=== PATIENT | female | born 1955 | race Caucasian/White ===

== ENCOUNTER 2021-11-18 12:42 | Outpatient (CLI) | payer OTHER | END 2021-11-18 12:43 | disposition home or self-care (01) | LOC: MRI 12:42 | PROVIDERS: ATTEND Neurological Surgery | DX: M50.30 Other cervical disc degeneration, unspecified cervical region (principal); M51.36 Other intervertebral disc degeneration, lumbar region; Z53.9 Procedure and treatment not carried out, unspecified reason | CPT/HCPCS: 72141; 72148 ==

== ENCOUNTER 2021-12-08 10:37 | Outpatient (CLI) | payer OTHER | END 2021-12-08 10:38 | disposition home or self-care (01) | LOC: LABBT 10:37 | PROVIDERS: ATTEND Neurological Surgery | DX: Z20.822 Contact with and (suspected) exposure to COVID-19 (principal) | CPT/HCPCS: 87811 ==

== ENCOUNTER 2021-12-31 11:13 | Outpatient (CLI) | payer OTHER | END 2021-12-31 11:14 | disposition home or self-care (01) | LOC: LABBT 11:13 | PROVIDERS: ATTEND Neurological Surgery | DX: Z20.822 Contact with and (suspected) exposure to COVID-19 (principal) | CPT/HCPCS: 87811 ==

== ENCOUNTER 2022-01-05 10:35 | Day surgery (SDC) | payer OTHER ==
[2022-01-01 10:28] VITALS: BMI 28.8
[2022-01-05] MEDS ORDERED: Midazolam HCl 2 mg/2 ml Vial ONE (11:29)
[2022-01-05] MEDS ORDERED: Dexamethasone 20 MG/5 ML VIAL ONE (14:00)
[2022-01-05] MEDS ORDERED: Ondansetron PF 4 MG/2 ML Vial ONE (14:00)
[2022-01-05] MEDS ORDERED: Lidocaine 1% PF 5 ML VIAL ONE (14:00)
[2022-01-05] MEDS ORDERED: PROPOFOL 200 MG/20 ML VIAL ONE (14:00)
[2022-01-05] MEDS ORDERED: Phenylephrine 10 MG/ML VIAL ONE (14:00)
[2022-01-05] MEDS ORDERED: Fentanyl 100 MCG/2 ML VIAL ONE (14:55)
[2022-01-05] MEDS ORDERED: Morphine 2 MG/ML VIAL ONE (15:23)
== END 2022-01-05 16:10 | disposition home or self-care (01) ==
LOC: MRI 10:35 → EDSTATUS 12:00 → MRI 16:10
PROVIDERS: ATTEND Neurological Surgery
DX: M47.22 Other spondylosis with radiculopathy, cervical region (principal); M50.123 Cervical disc disorder at C6-C7 level with radiculopathy; M48.02 Spinal stenosis, cervical region; M51.16 Intervertebral disc disorders with radiculopathy, lumbar region; M48.061 Spinal stenosis, lumbar region without neurogenic claudication; M48.07 Spinal stenosis, lumbosacral region; I25.10 Atherosclerotic heart disease of native coronary artery without angina pectoris; I10 Essential (primary) hypertension; E78.5 Hyperlipidemia, unspecified; Z79.82 Long term (current) use of aspirin; Z79.899 Other long term (current) drug therapy; Z95.1 Presence of aortocoronary bypass graft; Z95.810 Presence of automatic (implantable) cardiac defibrillator
CPT/HCPCS: 72141; 72148; J1100; J2250; J2270; J2370; J2405; J2704; J3010

== ENCOUNTER 2022-03-11 13:32 | Outpatient (CLI) | payer OTHER ==
[2022-03-11 15:55] LABS: Hemoglobin 13.4 g/dL (12.0-15.5); Mean Corpuscular HGB CONC 31.8 g/dL (32.0-36.0); Mean Corpuscular Hemoglobin 28.6 pg (27.0-33.0); Mean Platelet Volume 8.9 fl (7.4-10.4); Platelet Count 345 10x3/uL (150-450); RBC Distribution Width 13.2 % (11.5-14.5); Red Blood Cell (RBC) Count 4.69 10x6/uL (3.90-5.03); White Blood Cell (WBC) Count 8.1 10x3/uL (3.5-10.5)
[2022-03-11 16:18] LABS: Anion Gap 17 mmol/L (10-20); BUN (Urea Nitrogen) 16 mg/dL (9.8-20.1); Calc. Creatinine Clearance 0 mL/min (70-130); Calcium 9.5 mg/dL (7.8-10.44); Carbon Dioxide 26 mmol/L (23-31); Chloride 106 mmol/L (98-107); Estimated GFR 89; Glucose 98 mg/dL (80-115); Potassium 4.7 mmol/L (3.5-5.1); Sodium 144 mmol/L (136-145)
== END 2022-03-11 13:33 | disposition home or self-care (01) ==
LOC: LABBT 13:32
PROVIDERS: ATTEND Neurological Surgery
DX: Z01.818 Encounter for other preprocedural examination (principal); M54.12 Radiculopathy, cervical region; Z20.822 Contact with and (suspected) exposure to COVID-19
CPT/HCPCS: 80048; 85027; 87811; 93005; 93010

== ENCOUNTER 2022-03-16 06:35 | Day surgery (SDC) | payer OTHER ==
[2022-03-13 11:25] VITALS: BMI 28.8
[2022-03-16] MEDS ORDERED: Midazolam HCl 2 mg/2 ml Vial ONE (07:26)
[2022-03-16] MEDS ORDERED: CEFAZOLIN 2 GM VIAL ONE (07:32)
[2022-03-16] MEDS ORDERED: Sodium Chloride 0.9% 100 ML ONE (07:32)
[2022-03-16] MEDS ORDERED: Fentanyl 100 MCG/2 ML VIAL ONE ×3 (07:50→09:47)
[2022-03-16] MEDS ORDERED: fentaNYL Citrate/PF 100 MCG/2 ML SYRINGE ONE (08:07)
[2022-03-16] MEDS ORDERED: Rocuronium Bromide 10 MG/ML (10ML VIAL) ONE (08:13)
[2022-03-16] MEDS ORDERED: Dexamethasone 20 MG/5 ML VIAL ONE (08:13)
[2022-03-16] MEDS ORDERED: NEOSTIGMINE 3 MG/3 ML SYR 3 MG/3 ML SYRINGE ONE (08:13)
[2022-03-16] MEDS ORDERED: ePHEDrine 50 MG/ML VIAL ONE (08:13)
[2022-03-16] MEDS ORDERED: Ondansetron PF 4 MG/2 ML Vial ONE (08:13)
[2022-03-16] MEDS ORDERED: PROPOFOL 200 MG/20 ML VIAL ONE (08:13)
[2022-03-16] MEDS ORDERED: Glycopyrrolate 0.2 MG/ML 5 ML SYRINGE ONE (08:13)
[2022-03-16] MEDS ORDERED: SUGAMMADEX SODIUM 200 MG/2 ML VIAL ONE (09:19)
[2022-03-16] MEDS ORDERED: Cyclobenzaprine 10 MG TAB ONE (10:26)
[2022-03-16] MEDS ORDERED: Morphine 2 MG/ML VIAL ONE (10:26)
[2022-03-16] MEDS ORDERED: Morphine 4 MG/ML VIAL ONE (10:53)
[2022-03-16] MEDS ORDERED: HYDROcodone/Acetaminophen 5/325 mg Tablet ONE (11:17)
== END 2022-03-16 11:44 | disposition home or self-care (01) ==
LOC: SDC 06:35
PROVIDERS: ATTEND Neurological Surgery
PROC: 0RG20A0 Fusion of 2 or more Cervical Vertebral Joints with Interbody Fusion Device, Anterior Approach, Anterior Column, Open Approach (ICD-10-PCS; principal; 2022-03-16)
DX: M47.22 Other spondylosis with radiculopathy, cervical region (principal); I25.10 Atherosclerotic heart disease of native coronary artery without angina pectoris; I10 Essential (primary) hypertension; Z79.899 Other long term (current) drug therapy; Z95.810 Presence of automatic (implantable) cardiac defibrillator; Z95.1 Presence of aortocoronary bypass graft
CPT/HCPCS: 76000; C1713; J0690; J2250; J2270; J3010; J3490

== ENCOUNTER 2022-04-08 09:07 | Outpatient (CLI) | payer OTHER | END 2022-04-08 09:08 | disposition home or self-care (01) | LOC: TBSIIMAG 09:07 | PROVIDERS: ATTEND Neurological Surgery | DX: M54.12 Radiculopathy, cervical region (principal); Z98.1 Arthrodesis status | CPT/HCPCS: 72040 ==

== ENCOUNTER 2022-04-27 18:34 | Inpatient (IN) | payer OTHER ==
[2022-04-27 20:24] LABS: #Lymphocytes 1.9 thou/uL (1.20-3.40); #Monocytes 1.2 thou/uL (0.11-0.59); #Neutrophils 7.9 thou/uL (1.40-6.50); %Basophils 0.1 % (0.0-1.0); %Eosinophils 0.2 % (0.0-10.0); %Lymphocytes 17.2 % (21.0-51.0); %Monocytes 10.9 % (0.0-10.0); %Neutrophils 71.6 % (42.0-75.0); Mean Corpuscular HGB CONC 33.3 g/dL (32.0-36.0); Mean Corpuscular Hemoglobin 30.3 pg (27.0-31.0); Mean Corpuscular Volume 91.1 fl (78.0-98.0); Mean Platelet Volume 6.6 fL (7.4-10.4); Platelet Count 341 10x3/uL (130-400); RBC Distribution Width 13.6 % (11.5-14.5); Red Blood Cell (RBC) Count 4.62 mill/uL (4.20-5.40); White Blood Cell (WBC) Count 11.1 10x3/uL (4.8-10.8)
[2022-04-27 20:39] LABS: INR-International Normal Ratio 1.1; PTT 32.1 sec (22.9-36.1); Prothrombin Time 14.2 sec (12.0-14.7)
[2022-04-27 20:53] LABS: ALT (SGPT) 17 U/L (8-55); AST (SGOT) 16 U/L (5-34); Albumin 4.2 g/dL (3.4-4.8); Alkaline Phosphatase 89 U/L (40-110); Anion Gap 14 mmol/L (10-20); BUN (Urea Nitrogen) 7 mg/dL (9.8-20.1); Bilirubin, Total 0.5 mg/dL (0.2-1.2); Calc. Creatinine Clearance 0 mL/min (70-130); Calcium 9.4 mg/dL (7.8-10.44); Carbon Dioxide 26 mmol/L (23-31); Chloride 102 mmol/L (98-107); Estimated GFR 98; Glucose 107 mg/dL (80-115); Potassium 3.7 mmol/L (3.5-5.1); Sodium 138 mmol/L (136-145)
[2022-04-27] MEDS ORDERED: Ondansetron PF 4 MG/2 ML Vial IVP PRN (21:20)
[2022-04-27] MEDS ORDERED: hydrALAZINE 20 MG/ML VIAL SLOW IVP PRN (21:20)
[2022-04-27] MEDS ORDERED: TETANUS, DIPHTHERIA TOX,ADULT (TDVAX) 0.5 ML VIAL IM ONE (21:20)
[2022-04-27 21:22] LABS: Globulin 3.5 g/dL (2.4-3.5); Protein, Total 7.7 g/dL (5.8-8.1)
[2022-04-27 21:27] LABS: Acetaminophen Less than 10.0 mcg/mL (10.0-30.0); Alcohol Less than 10 mg/dL (Less than 10); Salicylate Less than 8.0 mg/dL (15.0-30.0)
[2022-04-27] MEDS ORDERED: Sodium Chloride 0.9% 1,000 ML IV SCH (21:30)
[2022-04-27] MEDS ORDERED: Morphine 4 MG/ML VIAL SLOW IVP PRN (21:30)
[2022-04-27] MEDS ORDERED: Ondansetron PF 4 MG/2 ML Vial ONE (21:32)
[2022-04-27] MEDS ORDERED: Boostrix 0.5 ML (Tdap) VIAL (>/=7 yrs of age) ONE (21:32)
[2022-04-27] MEDS ORDERED: Morphine 4 MG/ML VIAL ONE (21:32)
[2022-04-27] MEDS ORDERED: tiZANidine HCl 4 MG TAB PO PRN (22:11)
[2022-04-27] MEDS ORDERED: Lidocaine 1% PF 5 ML VIAL ONE (22:51)
[2022-04-27 22:58] LABS: Acetaminophen Less than 10.0 mcg/mL (10.0-30.0); Alcohol Less than 10 mg/dL (Less than 10); Salicylate Less than 8.0 mg/dL (15.0-30.0)
[2022-04-27 23:05] LABS: Troponin I Less than 0.010 ng/mL (< 0.028)
[2022-04-27] MEDS ORDERED: Metoclopramide HCl 10 MG/2 ML VIAL ONE (23:17)
[2022-04-27] MEDS ORDERED: Acetaminophen 500 MG TAB ONE (23:17)
[2022-04-27] MEDS ORDERED: Acetaminophen 500 MG TAB PO SCH (23:59)
[2022-04-28] MEDS ORDERED: Morphine 4 MG/ML VIAL ONE ×2 (01:05→10:10)
[2022-04-28] MEDS ORDERED: Prochlorperazine 10 MG/2 ML VIAL IVP SCH (01:45)
[2022-04-28] MEDS ORDERED: diphenhydrAMINE 50 MG/ML VIAL ONE (02:43)
[2022-04-28] MEDS: Acetaminophen 325 MG TAB PO SCH ×3 (04:11→17:32)
[2022-04-28] MEDS: Acetaminophen/Codeine 30-300mg Tablet PO SCH ×4 (04:12→17:31)
[2022-04-28] MEDS ORDERED: Acetaminophen/Codeine 30-300mg Tablet ONE (05:27)
[2022-04-28 06:04] LABS: #Lymphocytes 2.5 thou/uL (1.20-3.40); #Neutrophils 5.2 thou/uL (1.40-6.50); %Basophils 0.3 % (0.0-1.0); %Eosinophils 0.4 % (0.0-10.0); %Lymphocytes 28.4 % (21.0-51.0); %Monocytes 11.3 % (0.0-10.0); %Neutrophils 59.7 % (42.0-75.0); Hemoglobin 13.4 g/dL (12.0-16.0); Mean Corpuscular HGB CONC 32.4 g/dL (32.0-36.0); Mean Corpuscular Hemoglobin 29.9 pg (27.0-31.0); Mean Corpuscular Volume 92.4 fl (78.0-98.0); Mean Platelet Volume 6.8 fL (7.4-10.4); Platelet Count 293 10x3/uL (130-400); RBC Distribution Width 13.7 % (11.5-14.5); Red Blood Cell (RBC) Count 4.49 mill/uL (4.20-5.40); White Blood Cell (WBC) Count 8.7 10x3/uL (4.8-10.8)
[2022-04-28 06:12] LABS: SARS-CoV-2 NAA Rapid Test Not Detected (NotDetected)
[2022-04-28 06:21] LABS: Phosphorus 3.4 mg/dL (2.3-4.7)
[2022-04-28 06:23] LABS: Anion Gap 12 mmol/L (10-20); BUN (Urea Nitrogen) 6 mg/dL (9.8-20.1); Calc. Creatinine Clearance 0 mL/min (70-130); Calcium 8.8 mg/dL (7.8-10.44); Carbon Dioxide 24 mmol/L (23-31); Chloride 104 mmol/L (98-107); Estimated GFR 103; Glucose 91 mg/dL (80-115); Magnesium 2.1 mg/dL (1.6-2.6); Potassium 3.4 mmol/L (3.5-5.1); Sodium 137 mmol/L (136-145)
[2022-04-28] MEDS ORDERED: PHOS-NAK 1 PKT PACK PO SCH (07:45)
[2022-04-28] MEDS ORDERED: Potassium Chloride 20 MEQ TAB PO SCH (07:45)
[2022-04-28] MEDS ORDERED: Famotidine/PF 20 mg/2ml Vial SLOW IVP SCH (09:00)
[2022-04-28] MEDS ORDERED: Bupropion 150 MG SR TAB PO SCH (09:00)
[2022-04-28] MEDS ORDERED: Morphine 4 MG/ML VIAL SLOW IVP SCH (10:15)
[2022-04-28 13:45] VITALS: BMI 27.2
[2022-04-28] MEDS: Ezetimibe 10 MG TAB PO SCH (14:17)
[2022-04-28] MEDS: Famotidine 20 MG TAB PO SCH ×2 (14:19→20:56)
[2022-04-28] MEDS: Polyethylene Glycol 3350 17 GM Packet PO SCH (14:20)
[2022-04-28] MEDS: Senokot S 8.6-50 MG TAB PO SCH ×2 (14:20→20:56)
[2022-04-28] MEDS: hydrALAZINE 20 MG/ML VIAL SLOW IVP PRN (14:38)
[2022-04-28] MEDS: Amlodipine 5 MG TAB PO SCH ×2 (15:18→20:56)
[2022-04-28] MEDS: FLUoxetine HCl 20 MG CAP PO SCH (16:41)
[2022-04-28] MEDS ORDERED: Atorvastatin Calcium 10 MG TAB PO SCH (17:00)
[2022-04-28] MEDS ORDERED: Melatonin 3 MG TAB PO PRN (20:44)
[2022-04-28] MEDS ORDERED: Acetaminophen/Codeine 30-300mg Tablet PO SCH (20:45)
[2022-04-29] MEDS: Acetaminophen/Codeine 30-300mg Tablet PO SCH ×5 (00:18→23:41)
[2022-04-29] MEDS: Acetaminophen 500 MG TAB PO SCH ×2 (00:18→05:23)
[2022-04-29 00:53] LABS: Bacteria/HPF None Seen HPF (None Seen); Bilirubin Negative (Negative); Blood, Urine Negative (Negative); CAUTI Indications for Culture Pelvic or flank pain; Clarity Clear (Clear); Glucose, Urine (Dipstick) Normal (Negative); Ketone, Urine 20 mg/dL (Negative); Leukocyte 25 Leu/uL (Negative); Nitrite Negative (Negative); Protein, Urine (Dipstick) Negative (Neg-Trace); RBC/HPF 0-3 HPF (0-3); Specific Gravity, Urine 1.015 (1.002-1.036); Squamous Epithelial 0-3 HPF (0-3); Urobilinogen Normal mg/dL (Less than 2); pH, Urine 5.5 (5.0-9.0)
[2022-04-29 00:56] LABS: Urine Culture Reflex No No
[2022-04-29 05:04] LABS: #Lymphocytes 2.4 thou/uL (1.20-3.40); #Neutrophils 4.6 thou/uL (1.40-6.50); %Basophils 0.4 % (0.0-1.0); %Eosinophils 0.5 % (0.0-10.0); %Lymphocytes 29.9 % (21.0-51.0); %Monocytes 12.6 % (0.0-10.0); %Neutrophils 56.6 % (42.0-75.0); Hemoglobin 12.9 g/dL (12.0-16.0); Mean Corpuscular HGB CONC 31.6 g/dL (32.0-36.0); Mean Corpuscular Hemoglobin 29.1 pg (27.0-31.0); Mean Platelet Volume 6.8 fL (7.4-10.4); Platelet Count 298 10x3/uL (130-400); RBC Distribution Width 13.6 % (11.5-14.5); Red Blood Cell (RBC) Count 4.43 mill/uL (4.20-5.40); White Blood Cell (WBC) Count 8.1 10x3/uL (4.8-10.8)
[2022-04-29 05:27] LABS: Anion Gap 13 mmol/L (10-20); BUN (Urea Nitrogen) 7 mg/dL (9.8-20.1); Calc. Creatinine Clearance 122 mL/min (70-130); Calcium 8.9 mg/dL (7.8-10.44); Carbon Dioxide 27 mmol/L (23-31); Chloride 103 mmol/L (98-107); Estimated GFR 103; Glucose 104 mg/dL (80-115); Magnesium 2.2 mg/dL (1.6-2.6); Phosphorus 3.2 mg/dL (2.3-4.7); Potassium 3.7 mmol/L (3.5-5.1); Sodium 139 mmol/L (136-145)
[2022-04-29] MEDS ORDERED: PHOS-NAK 1 PKT PACK PO SCH (08:00)
[2022-04-29] MEDS ORDERED: Dexamethasone 4 MG in Sodium Chloride 0.9% 50 ML IVPB SCH (10:00)
[2022-04-29] MEDS: Amlodipine 5 MG TAB PO SCH (10:40)
[2022-04-29] MEDS: Famotidine 20 MG TAB PO SCH ×2 (10:41→20:40)
[2022-04-29] MEDS: Senokot S 8.6-50 MG TAB PO SCH ×2 (10:41→20:40)
[2022-04-29] MEDS: FLUoxetine HCl 20 MG CAP PO SCH (10:41)
[2022-04-29] MEDS: Ezetimibe 10 MG TAB PO SCH (10:41)
[2022-04-29] MEDS: Polyethylene Glycol 3350 17 GM Packet PO SCH (10:42)
[2022-04-29] MEDS: Dexamethasone 4 mg/ml Vial SLOW IVP SCH ×3 (11:54→23:41)
[2022-04-29] MEDS ORDERED: Ramipril 5 MG CAP PO SCH (13:30)
[2022-04-29] MEDS: hydrALAZINE 20 MG/ML VIAL SLOW IVP PRN (15:23)
[2022-04-29] MEDS: Mexiletine HCl 150 MG CAP PO SCH (20:40)
[2022-04-30] MEDS: Dexamethasone 4 mg/ml Vial SLOW IVP SCH ×2 (05:14→12:05)
[2022-04-30] MEDS: Acetaminophen/Codeine 30-300mg Tablet PO SCH ×2 (05:14→12:05)
[2022-04-30] MEDS ORDERED: Ramipril 5 MG CAP PO SCH (09:00)
[2022-04-30] MEDS: hydrALAZINE 20 MG/ML VIAL SLOW IVP PRN (10:15)
[2022-04-30] MEDS: FLUoxetine HCl 20 MG CAP PO SCH (10:16)
[2022-04-30] MEDS: Famotidine 20 MG TAB PO SCH ×2 (10:17→10:20)
[2022-04-30] MEDS: Mexiletine HCl 150 MG CAP PO SCH (10:17)
[2022-04-30] MEDS: Senokot S 8.6-50 MG TAB PO SCH (10:18)
[2022-04-30] MEDS: Polyethylene Glycol 3350 17 GM Packet PO SCH (10:18)
[2022-04-30 12:11] VITALS: BP 166/78; TEMP 97.6
== END 2022-04-30 14:25 | disposition home or self-care (01) | DRG 84 ==
LOC: ERS 18:34 → ERHOLD 21:24 → 2NO 04-28 13:30
PROVIDERS: ADMIT Surgery; ATTEND Surgery
PROC: 0HQ0XZZ Repair Scalp Skin, External Approach (ICD-10-PCS; principal; 2022-04-27)
DX: S06.5XAA Traumatic subdural hemorrhage with loss of consciousness status unknown, initial encounter (principal); I25.10 Atherosclerotic heart disease of native coronary artery without angina pectoris; I10 Essential (primary) hypertension; F41.9 Anxiety disorder, unspecified; G89.29 Other chronic pain; Z20.822 Contact with and (suspected) exposure to COVID-19; W19.XXXA Unspecified fall, initial encounter; S01.01XA Laceration without foreign body of scalp, initial encounter; Z95.0 Presence of cardiac pacemaker; Z95.1 Presence of aortocoronary bypass graft; Z98.890 Other specified postprocedural states; Y92.89 Other specified places as the place of occurrence of the external cause
CPT/HCPCS: 36415; 70450; 71045; 72125; 80048; 80053; 80307; 81001; 82550; 83735; 84100; 84484; 85025; 85610; 85730; 90471; 90715; 93005; 93306; 93880; 96374; 96375; 96376; J0360; J0780; J1100; J1200; J2270; J2405; J2765; J7050; U0002

== ENCOUNTER 2022-06-02 11:10 | Outpatient (CLI) | payer OTHER | END 2022-06-02 11:11 | disposition home or self-care (01) | LOC: CT 11:10 | PROVIDERS: ATTEND Physician Assistant | DX: S06.5XAA Traumatic subdural hemorrhage with loss of consciousness status unknown, initial encounter (principal) | CPT/HCPCS: 70450 ==

== ENCOUNTER 2022-06-04 11:07 | Outpatient (CLI) | payer OTHER | END 2022-06-04 11:08 | disposition home or self-care (01) | LOC: TBSIIMAG 11:07 | PROVIDERS: ATTEND Neurological Surgery | DX: M50.30 Other cervical disc degeneration, unspecified cervical region (principal); M47.812 Spondylosis without myelopathy or radiculopathy, cervical region; M43.12 Spondylolisthesis, cervical region; Z98.890 Other specified postprocedural states | CPT/HCPCS: 72040 ==

== ENCOUNTER 2023-08-06 02:30 | Emergency (ER) | payer MEDICARE ==
[2023-08-06] MEDS ORDERED: LORazepam 2 MG/ML SYR.(CARPUJECT) ONE (02:57)
[2023-08-06] MEDS ORDERED: Lidocaine 1% w/Epinephrine 1:100K 20 ML VIAL ONE (02:58)
[2023-08-06 03:51] LABS: #Eosinphils 0.1 thou/uL (0.0-0.7); #Monocytes 0.6 thou/uL (0.11-0.59); %Basophils 0.5 % (0.0-1.0); %Eosinophils 1.6 % (0.0-10.0); %Lymphocytes 24.2 % (21.0-51.0); %Monocytes 8.3 % (0.0-10.0); %Neutrophils 64.9 % (42.0-75.0); Hematocrit 41.2 % (36.0-47.0); Hemoglobin 13.6 g/dL (12.0-16.0); Mean Corpuscular Hemoglobin 30.2 pg (27.0-31.0); Mean Corpuscular Volume 91.4 fl (78.0-98.0); Platelet Count 241 10x3/uL (130-400); RBC Distribution Width 12.6 % (11.5-14.5); Red Blood Cell (RBC) Count 4.51 mill/uL (4.20-5.40); White Blood Cell (WBC) Count 7.7 10x3/uL (4.8-10.8)
[2023-08-06 04:27] LABS: Chloride 98 mmol/L (98-107); Potassium 4.4 mmol/L (3.5-5.1); Sodium 133 mmol/L (136-145)
[2023-08-06 04:28] LABS: ALT (SGPT) 22 U/L (8-55); AST (SGOT) 23 U/L (5-34); Alkaline Phosphatase 85 U/L (40-110); Anion Gap 17 mmol/L (10-20); BUN (Urea Nitrogen) 15 mg/dL (9.8-20.1); Bilirubin, Total 0.2 mg/dL (0.2-1.2); Calc. Creatinine Clearance 0 mL/min (70-130); Calcium 9.6 mg/dL (7.8-10.44); Carbon Dioxide 22 mmol/L (23-31); Estimated GFR 79; Globulin 3.2 g/dL (2.4-3.5); Glucose 99 mg/dL (80-115); Magnesium 2.1 mg/dL (1.6-2.6); Protein, Total 7.2 g/dL (5.8-8.1)
[2023-08-06 04:30] LABS: Troponin I Less than 0.010 ng/mL (< 0.028)
[2023-08-06] MEDS ORDERED: Ketorolac Tromethamine 30 MG (1 mL) VIAL ONE (04:51)
[2023-08-06 05:19] LABS: PTT 30.5 sec (22.9-36.1); Prothrombin Time 12.7 sec (12.0-14.7)
== END 2023-08-06 04:54 | disposition home or self-care (01) ==
LOC: ERS 02:30
DX: S02.31XA Fracture of orbital floor, right side, initial encounter for closed fracture (principal); S01.81XA Laceration without foreign body of other part of head, initial encounter; I10 Essential (primary) hypertension; W18.30XA Fall on same level, unspecified, initial encounter
CPT/HCPCS: 12013; 70450; 72125; 80053; 83735; 84484; 85025; 85610; 85730; 93005; 96361; 96374; 96375; 99283; J2060; 36415; J1885

== ENCOUNTER 2024-01-13 13:12 | Day surgery (SDC) | payer MEDICARE ==
[2024-01-12 11:51] VITALS: BMI 25.7
[2024-01-13] MEDS ORDERED: Heparin 5,000 UNITS/ML VIAL ONE (14:38)
[2024-01-13] MEDS ORDERED: Sodium Chloride 0.9% 100 ML ONE (14:59)
[2024-01-13] MEDS ORDERED: CEFAZOLIN 2 GM VIAL ONE (14:59)
[2024-01-13] MEDS ORDERED: Gentamicin 80 MG/2 ML VIAL ONE (15:04)
[2024-01-13] MEDS ORDERED: Vancomycin 1 GM VIAL ONE (15:05)
[2024-01-13] MEDS ORDERED: Bupivacaine 0.25% HCL 30 ML VIAL ONE (15:05)
[2024-01-13] MEDS ORDERED: EPINEPHrine 1 MG/ML VIAL ONE (15:05)
[2024-01-13] MEDS ORDERED: fentaNYL PF 100 MCG/2 ML SYRINGE ONE (15:14)
[2024-01-13] MEDS ORDERED: Lidocaine 1% PF 5 ML VIAL ONE (15:14)
[2024-01-13] MEDS ORDERED: Ondansetron PF 4 MG/2 ML Vial ONE (15:14)
[2024-01-13] MEDS ORDERED: ePHEDrine Sulfate 50 MG/10 ML VIAL ONE (15:14)
[2024-01-13] MEDS ORDERED: Dexamethasone 4 mg/ml Vial ONE (15:14)
[2024-01-13] MEDS ORDERED: PROPOFOL 40 ML ONE (15:14)
[2024-01-13] MEDS ORDERED: Midazolam HCl 2 mg/2 ml Vial ONE (15:35)
[2024-01-13] MEDS ORDERED: PHENYLEPHRINE-NS 100 MCG/ML 10 ML SYRINGE ONE (16:05)
[2024-01-13] MEDS ORDERED: fentaNYL 50 mcg/mL 1 mL Vial ONE ×2 (17:33→18:53)
[2024-01-13] MEDS ORDERED: HYDROmorphone 0.5 MG/0.5 ML SYRINGE ONE (17:44)
[2024-01-13] MEDS ORDERED: Ketorolac Tromethamine 30 MG (1 mL) VIAL ONE (18:02)
[2024-01-13] MEDS ORDERED: Morphine 4 MG/ML VIAL ONE (18:15)
== END 2024-01-13 19:25 | disposition home or self-care (01) ==
LOC: SDC 13:12
PROVIDERS: ATTEND Plastic Surgery
PROC: 0HPT0JZ Removal of Synthetic Substitute from Right Breast, Open Approach (ICD-10-PCS; principal; 2024-01-13)
PROC: 0HPU0JZ Removal of Synthetic Substitute from Left Breast, Open Approach (ICD-10-PCS; 2024-01-13)
DX: T85.44XA Capsular contracture of breast implant, initial encounter (principal); D17.39 Benign lipomatous neoplasm of skin and subcutaneous tissue of other sites; N64.1 Fat necrosis of breast; N60.32 Fibrosclerosis of left breast; Z85.3 Personal history of malignant neoplasm of breast; Z79.899 Other long term (current) drug therapy
CPT/HCPCS: 19371; 87070; 87075; 87077; 87186; 87205; C1889; J0171; J0665; J1100; J1170; J1644; J1885; J2250; J2272; J2405; J2704; J3010; 88304; J1580; J3370

== ENCOUNTER → 2024-04-18 | Day surgery (SDC) | payer MEDICARE ==
[~2024-04-18] MED LIST: 0.9 % Sodium Chloride 20 ML, Lidocaine 1% PF 5 ML, Iopamidol 5 ML, EPINEPHrine 0.1 MG FS SCH; Sodium Bicarbonate 2.5 MEQ/5 ML SDV ONE
== END ==
LOC: RAD 08:49
PROVIDERS: ATTEND Orthopaedic Surgery
PROC: BP28YZZ Computerized Tomography (CT Scan) of Right Shoulder using Other Contrast (ICD-10-PCS; principal; 2024-04-18)
DX: M75.01 Adhesive capsulitis of right shoulder (principal)
CPT/HCPCS: 23350; 73201; 77002; J0171; Q9967